=== PATIENT | female | born 1975 | race Caucasian/White ===

== ENCOUNTER 2018-04-13 11:38 | Emergency (ER) | payer MEDICAID ==
[~2018-04-13] VITALS: Ht 172.7 cm; Wt 122.0 kg
[~2018-04-13 11:38] MED LIST: IBUP800 PO; NAPR40TA PO
[2018-04-13 11:43] VITALS: BP 170/98; PULSE 89; RESP 16; TEMP 98.4; O2SAT 97
[2018-04-13] MEDS ORDERED: VENTAER INH (11:50)
[2018-04-13] MEDS ORDERED: KETOROLAC TROMETHAMINE 60 MG/2 ML (IM) VIAL IM ONE (13:00)
[2018-04-13 13:34] VITALS: BP 134/84; PULSE 84; RESP 18; O2SAT 94
--- NOTE | 2018-04-13 14:49 | PD ---
HPI Chief Complaint: Back/ Neck Pain or Injury Time Seen by Provider: 12:54 Travel History International Travel<30 days: No Contact w/Intl Traveler<30days: No Traveled to known affect area: No History of Present Illness HPI 43-year-old female with mid back pain after bending forward to roll picker her grandson. She reports pain localized to the thorax in the left rib region. She reports she heard a pop when she bent forward. The pain is constant, throbbing worse with twisting of the torso and bending forward. Slightly relieved with rest. Symptom severity is moderate. Denies altered sensation or weakness in the extremities PFSH Past Medical History Asthma: Yes Diminished Hearing: No Diverticulitis: Yes Musculoskeletal: Yes ("several herniated discs", DDD) Reproductive: Yes (H/O ENDOMETRIOSIS) Respiratory: Yes (ASTHMA) ?: Not LMP: 2 DAYS : 5 Para: 4 Miscarriage: 1 : 0 Tubal Ligation: Yes Past Surgical History Abdominal Surgery: Yes ("exploratory lap") Section: Yes (TIMES 2) Cholecystectomy: Yes Genitourinary Surgery: Yes Gynecologic Surgery: Yes (EXP LAP FOR ENDOMETRIOSIS 95) Other Surgery: Yes ("pyloric stenosis,age 6 weeks old") Social History Alcohol Use: Yes (DAILY) Tobacco Use: Yes (1 PPD) Substance Use: No Allergies-Medications (Allergen,Severity, Reaction): Coded Allergies: Fish Containing Products (Unverified Allergy, Severe, DIFFICULTY BREATHING , 04/13/18) gluten (Unverified Allergy, Severe, Constipation, 04/13/18) morphine (Unverified Adverse Reaction, Severe, VIOLENT BEHAVIOR, 04/13/18) prednisone (Unverified Adverse Reaction, Severe, Anaphylaxis, 04/13/18) penicillin G (Unverified Adverse Reaction, Intermediate, ITCHY, 04/13/18) Reported Meds & Prescriptions Reported Meds & Active Scripts Active Reported Ventolin Hfa 18 GM Inh (Albuterol Sulfate) 90 Mcg/Act Aer 1 Puff INH Q4H PRN Review of Systems Except as stated in HPI: all other systems reviewed are Neg General / Constitutional: No: Fever Eyes: No: Visual changes HENT: No: Headaches Cardiovascular: No: Chest Pain or Discomfort Respiratory: No: Shortness of Breath Gastrointestinal: No: Abdominal Pain Genitourinary: No: Dysuria Musculoskeletal: No: Pain Skin: No Rash Neurologic: No: Weakness Physical Exam Narrative GENERAL: Alert and well-appearing 43-year-old female. Ambulating with a steady gait SKIN: Warm and dry. HEAD: Normocephalic. EYES: No scleral icterus. No injection or drainage. NECK: Supple. No midline spine tenderness CARDIOVASCULAR: Regular rate and rhythm without murmurs, gallops, or rubs. RESPIRATORY: Breath sounds equal bilaterally. No accessory muscle use. GASTROINTESTINAL: Abdomen soft, non-tender, nondistended. MUSCULOSKELETAL: No cyanosis, or edema. Normal strength and sensation in extremities BACK:+ tenderness thoracic spine and posterior left ribs. Without obvious deformity. No CVA tenderness. Data Data Last Documented VS Vital Signs Date Time Temp Pulse Resp B/P (MAP) Pulse Ox O2 Delivery O2 Flow Rate FiO2 04/13/18 15:16 18 04/13/18 13:34 84 134/84 (101) 94 Room Air 04/13/18 11:43 98.4 Orders Orders Ketorolac Inj (Toradol Inj) (04/13/18 13:00) Chest, Single Ap (04/13/18 ) Spine, Thoracic-Ap/Lat/Sw(3vw) (04/13/18 ) MDM Medical Decision Making Medical Screen Exam Complete: Yes Emergency Medical Condition: Yes Differential Diagnosis Thoracic spine fracture, thoracic strain, rib fracture Narrative Course 43-year-old female with back pain. She has a normal neurologic exam. X-rays are negative for fracture. She reports symptom improvement after Toradol. She is stable and ready for discharge. Diagnosis Primary Impression: Strain of thoracic spine Qualified Codes: S29.019A - Strain of muscle and tendon of unspecified wall of thorax, initial encounter Referrals: Primary Care Physician Additional Instructions: Medication as directed. Follow-up with her primary doctor. Ice and/or heat for comfort. Light stretching. Scripts Ketorolac (Ketorolac) 10 Mg Tab 10 MG PO TID for Pain Management, #12 TAB 0 Refills Prov: Taylor Gao 04/13/18 Disposition: 01 DISCHARGE HOME Condition: Stable Taylor Gao April 13, 2018 14:49
[2018-04-13 15:16] VITALS: RESP 18
--- NOTE | 2018-04-13 15:20 | RADRPT ---
EXAM DATE/TIME: 04/13/2018 14:38 [facility] COMPARISON: CHEST SINGLE AP, December 01, 2010, 16:57. INDICATIONS : Upper back area pain after picking up grandson MEDICAL HISTORY : asthma SURGICAL HISTORY : None. ENCOUNTER: Initial ACUITY: 1 day PAIN SCORE: 7/10 LOCATION: Bilateral chest FINDINGS: A single view of the chest demonstrates the lungs to be symmetrically aerated without evidence of mas s, infiltrate or effusion. The cardiomediastinal contours are unremarkable. Osseous structures are intact. CONCLUSION: 1. No acute cardiopulmonary disease. Yinka Pantoja MD on April 13, 2018 at 15:18 Board Certified Radiologist. This report was verified electronically.
--- NOTE | 2018-04-13 15:21 | RADRPT ---
EXAM DATE/TIME: 04/13/2018 14:38 [facility] COMPARISON: No previous studies available for comparison. INDICATIONS : Upper back area pain after lifting up grandson today MEDICAL HISTORY : None. SURGICAL HISTORY : None. ENCOUNTER: Initial ACUITY: 1 day PAIN SCORE: 6/10 LOCATION: Bilateral upper back FINDINGS: Subtle levoscoliosis of the lower lumbar spine. Sagittal alignment is maintained. Vertebral body heig hts are intact. No acute bony fracture. Old 11th right rib fracture. Pedicles are intact at all level s. The paravertebral reflections are not thickened. CONCLUSION: 1. No acute fracture or subluxation. Yinka Pantoja MD on April 13, 2018 at 15:18 Board Certified Radiologist. This report was verified electronically.
[2018-04-13] MEDS ORDERED: KETO10 PO (15:31)
== END 2018-04-13 15:41 | disposition home or self-care (01) ==
LOC: PHEFT 11:38
DX: S29.019A Strain of muscle and tendon of unspecified wall of thorax, initial encounter (principal); J45.909 Unspecified asthma, uncomplicated; X50.1XXA Overexertion from prolonged static or awkward postures, initial encounter
CPT/HCPCS: 71045; 72072; 99283; J1885